=== PATIENT | male | born 1970 | race American Indian/Alaskan Native ===

== ENCOUNTER 2017-11-27 20:16 | Inpatient (IN) | payer OTHER ==
[2017-11-27 20:16] VITALS: BMI 27.7
[2017-11-27] MEDS ORDERED: Albuterol 0.083% Inhal Sol (2.5 mg/3 mL) UD INH STA (20:52)
[2017-11-27] MEDS ORDERED: Albuterol-Ipratrop 3 mg / 0.5 (3 ml) UD IH STA (20:52)
[2017-11-27 22:17] LABS: INR 1.07 (0.93-1.08); PROTHROMBIN TIME 12.2 SECONDS (9.4-12.5)
[2017-11-27 22:19] LABS: ALBUMIN 4.1 g/dL (3.0-4.8); ALT/SGPT 38 U/L (7-56); AST/SGOT 30 U/L (17-59); BLOOD UREA NITROGEN 17 mg/dL (7-21); CALCIUM 9.1 mg/dL (8.4-10.5); GFR AFRICAN-AMERICAN > 60; GFR NON-AFRICAN AMERICAN 54
[2017-11-27 22:28] LABS: BASO # 0.02 K/mm3 (0.0-2.0); BASO % 0.3 % (0.0-3.0); EOS # 0.2 (0.0-0.7); EOS % 2.5 % (1.5-5.0); GRAN # 4.42 (1.4-6.5); GRAN % 65.5 % (50.0-68.0); LYMPH # 1.6 (1.2-3.4); LYMPH % 24.3 % (22.0-35.0); MEAN CELL VOLUME 94.6 fl (80.0-105.0); MEAN CORPUSCULAR HEMOGLOBIN 31.8 pg (25.0-35.0); MEAN CORPUSCULAR HGB CONC 33.6 g/dl (31.0-37.0); MEAN PLATELET VOLUME 10.7 fl (7.0-11.0); MONO # 0.5 (0.1-0.6); MONO % 7.4 % (1.0-6.0); RBC 5.03 10^6/uL (3.5-6.1); RED CELL DISTRIBUTION WIDTH 13.5 % (11.5-14.5); WHITE BLOOD COUNT 6.8 10^3/ul (4.5-11.0)
[2017-11-27 22:30] LABS: TROPONIN I < 0.01 ng/mL
[2017-11-28] MEDS ORDERED: levoFLOXacin 750 mg in D5W 750 MG/150 ML BAG IVPB STA (00:03)
--- NOTE | 2017-11-28 00:04 | ED PDOC ---
Arrival/HPI - General Chief Complaint: Flu-like Symptoms Time Seen by Provider: 11/27/17 20:39 Historian: Patient - History of Present Illness Narrative History of Present Illness (Text): 11/28/17 00:02 A 47 year old male, with one episode of bronchitis in the past, no other past medical history, presents to the emergency department for feeling sick the past 3-4 days, cough and congestion. Patient thinks he has the flu. Patient reports subjective fever but denies any other complaints at this time. Time/Duration: < week Symptom Onset: Sudden Symptom Course: Unchanged Activities at Onset: Rest Context: Home Past Medical History - Provider Review Nursing Documentation Reviewed: Yes - Psychiatric Hx Depression: No Hx Emotional Abuse: No Hx Physical Abuse: No Hx Substance Use: No - Suicidal Assessment Feels Threatened In Home Enviroment: No Family/Social History - Physician Review Nursing Documentation Reviewed: Yes Family/Social History: No Known Family HX Smoking Status: never Hx Alcohol Use: Yes (SOCIAL) Hx Substance Use: No Hx Substance Use Treatment: No Allergies/Home Meds Allergies/Adverse Reactions: Allergies No Known Allergies Allergy (Verified 04/29/12 19:11) Home Medications: Home Meds Medication Instructions Recorded Confirmed No Known Home Med 04/29/12 11/27/17 Review of Systems - Physician Review All systems were reviewed & negative as marked: Yes - Review of Systems Constitutional: Fevers (subjective) ENT: Sinus Congestion Respiratory: Cough Physical Exam Vital Signs Reviewed: Yes Vital Signs Temp Pulse Resp BP Pulse Ox 11/27/17 20:20 99.5 F 122 H 18 154/80 H 95 Temperature: Afebrile Blood Pressure: Hypertensive Pulse: Tachycardic Respiratory Rate: Normal Appearance: Positive for: Well-Appearing, Non-Toxic, Comfortable Pain Distress: None Mental Status: Positive for: Alert and Oriented X 3 - Systems Exam Head: Present: Atraumatic, Normocephalic Pupils: Present: PERRL Extroacular Muscles: Present: EOMI Conjunctiva: Present: Normal Mouth: Present: Moist Mucous Membranes Nose (Internal): Present: Other (nasal congestion) Neck: Present: Normal Range of Motion Respiratory/Chest: Present: Wheezes (all lung trujillo, front and back). No: Respiratory Distress, Accessory Muscle Use Cardiovascular: Present: Regular Rate and Rhythm, Normal S1, S2. No: Murmurs Abdomen: Present: Normal Bowel Sounds. No: Tenderness, Distention, Peritoneal Signs Back: Present: Normal Inspection Upper Extremity: Present: Normal Inspection. No: Cyanosis, Edema Lower Extremity: Present: Normal Inspection. No: Edema Neurological: Present: GCS=15, CN II-XII Intact, Speech Normal Skin: Present: Warm, Dry, Normal Color. No: Rashes Psychiatric: Present: Alert, Oriented x 3, Normal Insight, Normal Concentration Medical Decision Making ED Course and Treatment: 11/28/17 00:00 Impression: A 47 year old male with cough, congestion and wheezing. Plan: -- chest xray -- labs -- Albuterol, Duoneb, Solumedrol, Levaquin -- Reassess and disposition Progress Notes: 11/28/17 00:00 Chest xray: No active disease, as read by me. 11/28/17 00:05 Patient still with wheezing, will give patient another treatment. 11/28/17 00:[address] Alvarado, who agrees and accepts patient to be admitted to her service with Dr. Domínguez on consult. - Lab Interpretations Lab Results: 11/27/17 21:48 11/27/17 21:48 Lab Results 11/27/17 21:48: Sodium 143, Potassium 4.1, Chloride 103, Carbon Dioxide 26, Anion Gap 18, BUN 17, Creatinine 1.4, Est GFR ( Amer) > 60, Est GFR (Non- Af Amer) 54, Random Glucose 138 H, Calcium 9.1, Total Bilirubin 0.4, AST 30, ALT 38, Alkaline Phosphatase 79, Lactate Dehydrogenase 547, Total Creatine Kinase 195, Troponin I < 0.01, Total Protein 8.3, Albumin 4.1, Globulin 4.2, Albumin/Globulin Ratio 1.0 L 11/27/17 21:48: PT 12.2, INR 1.07 11/27/17 21:48: WBC 6.8, RBC 5.03, Hgb 16.0, Hct 47.6, MCV 94.6, MCH 31.8, MCHC 33.6, RDW 13.5, Plt Count 231, MPV 10.7, Gran % 65.5, Lymph % (Auto) 24.3, Sunflower % (Auto) 7.4 H, Eos % (Auto) 2.5, Baso % (Auto) 0.3, Gran # 4.42, Lymph # (Auto ) 1.6, Sunflower # (Auto) 0.5, Eos # (Auto) 0.2, Baso # (Auto) 0.02 11/27/17 20:40: Influenza Typ A,B (EIA) Negative for flu a/b I have reviewed the lab results: Yes - RAD Interpretation Radiology Orders: 11/27/17 20:52 CHEST TWO VIEWS (PA/LAT) [RAD] Stat - Medication Orders Current Medication Orders: Levofloxacin/Dextrose (Levaquin 750mg) 750 mg in 150 mls @ 100 mls/hr IVPB STAT STA PRN Reason: Protocol Stop: 11/28/17 01:32 Magnesium Sulfate 2 gm/ Sodium (Chloride) 104 mls @ 102 mls/hr IVPB ONCE ONE Stop: 11/28/17 01:11 Discontinued Medications Albuterol Sulfate (Albuterol 0.083% Inhal Bella (2.5 Mg/3 Ml) Ud) 2.5 mg INH STAT STA Stop: 11/27/17 20:53 Last Admin: 11/27/17 21:55 Dose: 2.5 mg Albuterol/Ipratropium (Duoneb 3 Mg/0.5 Mg (3 Ml) Ud) 3 ml IH STAT STA Stop: 11/27/17 20:53 Last Admin: 11/27/17 21:36 Dose: 3 ml Albuterol/Ipratropium (Duoneb 3 Mg/0.5 Mg (3 Ml) Ud) 3 ml IH STAT STA Stop: 11/28/17 00:11 Methylprednisolone (Solu-Medrol) 125 mg IVP STAT STA Stop: 11/27/17 20:53 Last Admin: 11/27/17 21:36 Dose: 125 mg IVP Administration Document 11/27/17 21:36 MARILU (Rec: 11/27/17 22:56 MARILU [id number]) Charges for Administration # of IVP Administrations 1 - PA / SHOCHET / Resident Statement MD/DO has reviewed & agrees with the documentation as recorded. - Scribe Statement The provider has reviewed the documentation as recorded by the Scribe Narinder Dailey Provider Scribe Attestation: All medical record entries made by the Scribe were at my direction and personally dictated by me. I have reviewed the chart and agree that the record accurately reflects my personal performance of the history, physical exam, medical decision making, and the department course for this patient. I have also personally directed, reviewed, and agree with the discharge instructions and disposition. Disposition/Present on Arrival - Present on Arrival Any Indicators Present on Arrival: No History of DVT/PE: No History of Uncontrolled Diabetes: No Urinary Catheter: No History of Decub. Ulcer: No History Surgical Site Infection Following: None - Disposition Have Diagnosis and Disposition been Completed?: Yes Diagnosis: Bronchospasm with bronchitis, acute Disposition Time: 00:09 Patient Plan: Admission Patient Problems: Current Active Problems Problem Status Onset Bronchospasm with bronchitis, acute Acute Condition: GOOD
[2017-11-28] MEDS ORDERED: Magnesium Sulfate 2 GM in Sodium Chloride 0.9% 100 ML IVPB ONE (00:10)
[2017-11-28] MEDS ORDERED: Albuterol-Ipratrop 3 mg / 0.5 (3 ml) UD IH STA (00:10)
[2017-11-28] MEDS ORDERED: Albuterol-Ipratrop 3 mg / 0.5 (3 ml) UD IH PRN (08:16)
[2017-11-28] MEDS: Pantoprazole 40 mg EC Tab PO SCH (08:44)
--- NOTE | 2017-11-28 10:13 | RAD ---
HISTORY: COUGH, CONGESTION COMPARISON: No prior. TECHNIQUE: Chest PA and lateral FINDINGS: LUNGS: No active pulmonary disease. PLEURA: No significant pleural effusion identified. No pneumothorax apparent. CARDIOVASCULAR: Normal. OSSEOUS STRUCTURES: No significant abnormalities. VISUALIZED UPPER ABDOMEN: Normal. OTHER FINDINGS: None. IMPRESSION: No active disease.
[2017-11-28] MEDS: cefTRIAXone 1 gm 1 GM/100 ML BAG IVPB SCH (11:00)
[2017-11-28] MEDS: MethylPREDNISolone 40 mg Vial IVP SCH ×3 (12:47→22:57)
[2017-11-28 13:24] LABS: URINE BILIRUBIN NEGATIVE (NEGATIVE); URINE BLOOD LARGE (NEGATIVE); URINE GLUCOSE (UA) >=1000 mg/dL (NEGATIVE); URINE LEUKOCYTE ESTERASE NEGATIVE Leu/uL (NEGATIVE); URINE NITRATE NEGATIVE (NEGATIVE); URINE PROTEIN 30 mg/dL (<30 mg/dL); URINE UROBILINOGEN 0.2 E.U./dL (<1 E.U./dL)
[2017-11-28 13:25] LABS: URINE APPEARANCE SL CLOUDY (CLEAR); URINE COLOR YELLOW (YELLOW)
[2017-11-28 13:35] LABS: CREATININE,RANDOM URINE 86 mg/dL
[2017-11-28 13:42] LABS: URINE BACTERIA MOD (NEG); URINE RBC TNTC /hpf (0-2)
[2017-11-28 17:19] LABS: BLOOD UREA NITROGEN 16 mg/dL (7-21); CALCIUM 9.6 mg/dL (8.4-10.5); GFR AFRICAN-AMERICAN > 60; GFR NON-AFRICAN AMERICAN 54
[2017-11-28] MEDS: Budesonide 0.25 mg/2 ml Inhal Susp UD IH SCH (20:03)
[2017-11-28] MEDS: Arformoterol 15 mcg/2 ml Inh Sol IH SCH (20:04)
--- NOTE | 2017-11-28 21:58 | CP.PCM.CON ---
History of Present Illness - History of Present Illness History of Present Illness: 47 yo M w/ no reported pmh, doesn't follow with any physician, presented with worsening cough and chest congestion; admitted for acute bronchitis; nephrology being consulted for uncontrolled htn; Patient reports having flu-like symptoms late last week with body aches and subjective fever that resolved; subsequently, patient developed the above symptoms which have improved since receiving steroids and antibiotics while here ; Patient otherwise denies chest pain, palpitations or leg swelling; urinates 3-4 times per night but says he drinks a lot of water; denies any dark colored urine recently or in the past; Review of Systems - Constitutional Constitutional: Fever - EENT Eyes: absent: Change in Vision Nose/Mouth/Throat: absent: Sore Throat - Cardiovascular Cardiovascular: absent: Chest Pain, Dyspnea on Exertion, Leg Edema - Respiratory Respiratory: Cough - Gastrointestinal Gastrointestinal: absent: Diarrhea, Nausea, Vomiting - Genitourinary Genitourinary: absent: Dysuria - Musculoskeletal Musculoskeletal: absent: Arthralgias, Back Pain - Integumentary Integumentary: absent: Rash - Neurological Neurological: absent: Dizziness, Headaches - Psychiatric Psychiatric: absent: Anxiety, Depression - Endocrine Endocrine: Polyuria - Hematologic/Lymphatic Hematologic: absent: Easy Bruising Past Patient History - Past Medical History & Family History Past Medical History?: No Pertinent Family History: Mother with DM and kidney problems (not on dialysis); - Past Social History Smoking Status: Never Smoked - CARDIAC Hx Cardiac Disorders: No - PULMONARY Hx Respiratory Disorders: Yes Hx Bronchitis: Yes - NEUROLOGICAL Hx Neurological Disorder: No - HEENT Hx HEENT Problems: No - RENAL Hx Chronic Kidney Disease: No - HEMATOLOGICAL/ONCOLOGICAL Hx Blood Disorders: No - INTEGUMENTARY Hx Dermatological Problems: No - MUSCULOSKELETAL/RHEUMATOLOGICAL Hx Musculoskeletal Disorders: No Hx Falls: No - GASTROINTESTINAL Hx Gastrointestinal Disorders: No - GENITOURINARY/GYNECOLOGICAL Hx Genitourinary Disorders: No - PSYCHIATRIC Hx Psychophysiologic Disorder: No Hx Substance Use: No - SURGICAL HISTORY Hx Surgeries: No Meds Allergies/Adverse Reactions: Allergies Allergy/AdvReac Type Severity Reaction Status Date / Time No Known Allergies Allergy Verified 04/29/12 19:11 - Medications Medications: Current Medications Albuterol/Ipratropium (Duoneb 3 Mg/0.5 Mg (3 Ml) Ud) 3 ml IH [id number] PRN PRN Reason: Shortness of Breath Arformoterol Tartrate (Brovana) 15 mcg IH [id number] [facility] Last Admin: 11/28/17 20:04 Dose: 15 mcg Budesonide (Pulmicort Respules) 0.25 mg IH [id number] [facility] Last Admin: 11/28/17 20:03 Dose: 0.25 mg Ceftriaxone Sodium (Rocephin 1 Gram Ivpb) 1 gm in 100 mls @ 100 mls/hr IVPB DAILY [facility] PRN Reason: Protocol Stop: 12/02/17 10:59 Last Admin: 11/28/17 11:00 Dose: 100 mls/hr Lisinopril (Zestril) 20 mg PO DAILY [facility] Last Admin: 11/28/17 11:01 Dose: 20 mg Methylprednisolone (Solu-Medrol) 40 mg IVP Q12 [facility] Pantoprazole Sodium (Protonix Ec Tab) 40 mg PO 0600 [facility] Last Admin: 11/28/17 08:44 Dose: 40 mg Physical Exam - Constitutional Appears: Well, No Acute Distress - Head Exam Head Exam: NORMAL INSPECTION - Eye Exam Eye Exam: absent: Scleral icterus - ENT Exam ENT Exam: Mucous Membranes Moist - Neck Exam Neck exam: Positive for: Normal Inspection. Negative for: Lymphadenopathy - Respiratory Exam Respiratory Exam: Clear to Auscultation Bilateral. absent: Respiratory Distress - Cardiovascular Exam Cardiovascular Exam: RRR, +S1, +S2 - GI/Abdominal Exam GI & Abdominal Exam: Soft. absent: Distended, Tenderness - Exam Exam: absent: Bladder Distension - Extremities Exam Additional comments: no leg edema; - Neurological Exam Neurological exam: Alert, Oriented x3 - Psychiatric Exam Psychiatric exam: Normal Affect, Normal Mood - Skin Skin Exam: Normal Color, Warm Results - Vital Signs Recent Vital Signs: Last Vital Signs Temp 98 F 11/28/17 16:00 Pulse 97 H 11/28/17 16:00 Resp 20 11/28/17 16:00 BP 146/90 11/28/17 16:00 Pulse Ox 98 11/28/17 16:00 - Labs Result Diagrams: 11/29/17 05:30 11/29/17 05:30 Labs: Laboratory Results - last 24 hr 11/28/17 11/28/17 11/28/17 07:25 13:00 13:00 Sodium Potassium Chloride Carbon Dioxide Anion Gap BUN Creatinine Est GFR ( Amer) Est GFR (Non-Af Amer) POC Glucose (mg/dL) 166 H Random Glucose Hemoglobin A1c Calcium Urine Color Yellow Urine Appearance Sl cloudy Urine pH 6.0 Ur Specific [place] 1.015 Urine Protein 30 H Urine Glucose (UA) >=1000 Urine Ketones Negative Urine Blood Large H Urine Nitrate Negative Urine Bilirubin Negative Urine Urobilinogen 0.2 Ur Leukocyte Esterase Negative Urine RBC Tntc Urine WBC 5 - 10 Ur Epithelial Cells 4 - 5 Urine Bacteria Mod Ur Random Creatinine 86 Ur Random Sodium 48 Urine Microalbumin 11/28/17 11/28/17 11/28/17 13:00 16:30 16:30 Sodium 141 Potassium 5.1 H Chloride 105 Carbon Dioxide 23 Anion Gap 19 BUN 16 Creatinine 1.4 Est GFR ( Amer) > 60 Est GFR (Non-Af Amer) 54 POC Glucose (mg/dL) Random Glucose 177 H Hemoglobin A1c 6.7 H Calcium 9.6 Urine Color Urine Appearance Urine pH Ur Specific [place] Urine Protein Urine Glucose (UA) Urine Ketones Urine Blood Urine Nitrate Urine Bilirubin Urine Urobilinogen Ur Leukocyte Esterase Urine RBC Urine WBC Ur Epithelial Cells Urine Bacteria Ur Random Creatinine Ur Random Sodium Urine Microalbumin 304.1 H - Imaging and Cardiology Chest x-ray Status: Image reviewed by me Additional comment: CXR clear Assessment & Plan (1) HTN (hypertension) Assessment and Plan: BP uncontrolled on presentation, never treated previously; no sign of volume excess on exam; likely essential htn but will look for secondary cause as well; has increased risk factors for cardiovascular disease including obesity and early CKD; will need to establish close f/u with PMD as outpatient; -BP improved on lisinopril 20 mg daily started by PMD; continue the same; checking valdo/renin level; Status: Acute (2) Polyuria Assessment and Plan: Glycosuria on UA; checking HgbA1C to screen for DM; Status: Acute (3) CKD (chronic kidney disease) Assessment and Plan: Mildly elevated serum creatinine with overt albuminuria; also with blood on UA; will pursue serologic workup for glomerular disease; checking C3/C4 for now; will check direct urine micro; Status: Suspected (4) Proteinuria Assessment and Plan: 350 mg/g albuminuria by Ur prot/creat ratio; 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
--- NOTE | 2017-11-29 05:33 | CON ---
DATE: 11/28/2017 REFERRING PHYSICIAN: Nora Alvarado MD REASON FOR CONSULTATION: Cough, shortness of breath. HISTORY OF PRESENT ILLNESS: This is a 47-year-old gentleman without any significant past medical history, who has been having flu-like symptoms for a couple of days, took [id number] medication with some relief, comes in with a chest pain, shortness of breath. No nausea, no vomiting. No diarrhea. Admit to have snoring at nighttime, daytime sleepy and tired. PAST MEDICAL HISTORY: No significant cardiopulmonary disease reported. ALLERGIES: NONE KNOWN. FAMILY HISTORY: No significant cardiopulmonary disease is reported. SOCIAL HISTORY: Nonsmoker, nondrinker. MEDICATIONS: He was put on Brovana inhaled twice a day, DuoNeb q.6h. p.r.n., Protonix 40 mg daily, Pulmicort inhaled twice a day, Rocephin 1 g daily, Solu-Medrol 40 mg q.6h., Zestril 20 mg daily. REVIEW OF SYSTEMS: No headache. Has some rhinitis, cough, shortness of breath, seems like pleuritic pain. No nausea, no vomiting, no diarrhea. No leg pain or leg swelling. PHYSICAL EXAMINATION: VITAL SIGNS: Temperature is 98, heart rate is 100, respiratory rate is 20, blood pressure in the morning was 178/112, presently 146/90. HEENT: Moist mucous membrane. Crowded airway. Mallampati score is 4. NECK: Supple. No JVD. LUNGS: Has a prolonged expiratory phase with rhonchi. HEART: S1, S2. ABDOMEN: Soft, nontender, no organomegaly. EXTREMITIES: No edema. NEUROLOGIC: Awake, alert, follows simple commands. LABORATORY DATA: Shows hemoglobin 16.0, hematocrit 47.6, WBC 6.8, platelet count is 231. INR 1.07. Sodium 141, potassium 4.1, chloride 105, bicarbonate 23, BUN 16, creatinine 1.4, glucose 177, hemoglobin A1c 6.7, calcium is 9.6. Influenza A and B have been negative. Chest x-ray done shows no infiltrate or effusion reported. IMPRESSION AND PLAN: Probably status post viral infection with acute bronchitis with bronchospasm. I agree with the present treatment. We will place on Rocephin, Solu-Medrol, inhaled bronchodilator, gastric and DVT prophylaxes. May also have sleep apnea syndrome. Sleep apnea precaution, avoid sedation, outpatient attended sleep study. We will also recommend PFT as outpatient upon discharge. Decrease Solu-Medrol to 40 q.12h. Thank you and we will follow with you. Dejah Domínguez MD
--- NOTE | 2017-11-29 06:10 | HP ---
CHIEF COMPLAINT: Flu-like symptoms. HISTORY OF PRESENT ILLNESS: Mr. Keven Stern is a 47-year-old male with nonsignificant past medical history, has one episode of bronchitis in the past. No other past medical history. He came to the emergency department, complaining of feeling sick for the past 3 to 4 days, coughing, congestion. The patient stated he has flu. The patient reports subjective fever, but denies any other complaints. No hematuria or hematochezia. No dysuria, no dyspnea, no dyspepsia. All started less than 1 week, unchanged.. PAST MEDICAL HISTORY: History of bronchitis once; otherwise, nonsignificant. FAMILY HISTORY: Father and mother noncontributory. HABITS: Alcohol, socially. Substance abuse, no. Smoking, never. ALLERGIES: THE PATIENT IS NOT ALLERGIC TO ANY MEDICATIONS. HOME MEDICATIONS: Denied. REVIEW OF SYSTEMS: The patient is seen and examined at the bedside, looking comfortable except that congested, coughing, sometimes feeling shortness of breath at the end of the cough, fever, subjective sinus congestion. PHYSICAL EXAMINATION: VITAL SIGNS: Temperature 99.5, pulse 122, respiratory rate 18, blood pressure 154/80, pulse oximetry 95. HEENT: Head is normocephalic and atraumatic. Eyes, PERRLA. Extraocular movements are intact. Conjunctivae clear. Nose patent. Mucous membrane moist. NECK: Supple. No carotid bruit, JVD, or thyromegaly. CHEST: Bilaterally symmetrical. LUNGS: Wheezing in all the lung field, front and back. HEART: S1 and S2 positive. Regular rate and rhythm. ABDOMEN: Soft. Bowel sounds present. No organomegaly. EXTREMITIES: No edema. No cyanosis. NEUROLOGIC: Patient is awake and alert. Moving all four extremities. No focal deficits. LABORATORY DATA: White blood cells 6.3, hemoglobin 16.0, hematocrit 47.6, platelets 231. Sodium 143, potassium 4.1, BUN 70, creatinine 1.4, glucose 138. ASSESSMENT AND PLAN: Mr. Keven Stern is a 47-year-old male with hyperglycemia, came with flu-like symptoms, has bronchospasm with bronchitis and hypertension. Chest x-ray done, showed no active disease. The patient was seeing Dr. Myles Ponce for uncontrolled hypertension. He never had high blood pressures in the past. Seen by Dr. Domínguez, started on Brovana, albuterol, Protonix for gastrointestinal prophylaxis, ceftriaxone given, started on Solu-Medrol and Zestril. Gastrointestinal and deep venous thrombosis prophylaxis. Repeat labs. Discussion done with Dr. Myles Ponce. We will follow up. Nora Alvarado MD
[2017-11-29] MEDS: Pantoprazole 40 mg EC Tab PO SCH (06:16)
[2017-11-29 07:13] LABS: ALBUMIN 3.9 g/dL (3.0-4.8); CALCIUM 9.2 mg/dL (8.4-10.5)
[2017-11-29 07:14] LABS: HEMOGLOBIN 15.3 g/dL (14.0-18.0); MEAN CELL VOLUME 94.5 fl (80.0-105.0); MEAN CORPUSCULAR HEMOGLOBIN 32.1 pg (25.0-35.0); MEAN PLATELET VOLUME 10.3 fl (7.0-11.0); RBC 4.76 10^6/uL (3.5-6.1); RED CELL DISTRIBUTION WIDTH 13.9 % (11.5-14.5); WHITE BLOOD COUNT 16.7 10^3/ul (4.5-11.0)
[2017-11-29] MEDS: Arformoterol 15 mcg/2 ml Inh Sol IH SCH ×2 (08:47→20:03)
[2017-11-29] MEDS: Budesonide 0.25 mg/2 ml Inhal Susp UD IH SCH ×2 (08:48→20:04)
[2017-11-29] MEDS: MethylPREDNISolone 40 mg Vial IVP SCH ×3 (09:43→22:15)
[2017-11-29] MEDS: cefTRIAXone 1 gm 1 GM/100 ML BAG IVPB SCH (09:43)
--- NOTE | 2017-11-29 14:36 | US ---
PROCEDURE: Ultrasound of the Kidneys HISTORY: renal insufficiency COMPARISON: None available. TECHNIQUE: Sonogram of the kidneys. FINDINGS: RIGHT KIDNEY: Measures: 10.2 x 4.3 x 6.7 cm. Normal in size, contour and echogenicity. No stone, solid mass lesion or hydronephrosis visualized. No perinephric fluid collection identified. LEFT KIDNEY: Measures: 10.1 x 5.7 x 6.6 cm. Normal in size, contour and echogenicity. No stone, solid mass lesion or hydronephrosis visualized. No perinephric fluid collection identified. OTHER FINDINGS: None. IMPRESSION: Unremarkable renal sonogram.
[2017-11-29 14:44] LABS: COMPLEMENT C4 44.5 mg/dL (14.0-44.0)
--- NOTE | 2017-11-29 19:46 | CP.PCM.PN ---
Subjective - Date & Time of Evaluation Date of Evaluation: 11/29/17 Time of Evaluation: 11:00 - Subjective Subjective: Patient reports breathing/cough improved; tolerating diet; Objective - Vital Signs/Intake and Output Vital Signs (last 24 hours): Temp Pulse Resp BP Pulse Ox 98.3 F 102 H 18 153/93 H 96 11/29/17 06:00 11/29/17 18:11 11/29/17 06:00 11/29/17 18:11 11/29/17 06:00 - Medications Medications: Current Medications Albuterol/Ipratropium (Duoneb 3 Mg/0.5 Mg (3 Ml) Ud) 3 ml IH [id number] PRN PRN Reason: Shortness of Breath Arformoterol Tartrate (Brovana) 15 mcg IH [id number] [facility] Last Admin: 11/29/17 08:47 Dose: 15 mcg Budesonide (Pulmicort Respules) 0.25 mg IH [id number] [facility] Last Admin: 11/29/17 08:48 Dose: 0.25 mg Ceftriaxone Sodium (Rocephin 1 Gram Ivpb) 1 gm in 100 mls @ 100 mls/hr IVPB DAILY [facility] PRN Reason: Protocol Stop: 12/02/17 10:59 Last Admin: 11/29/17 09:43 Dose: 100 mls/hr Lisinopril (Zestril) 20 mg PO DAILY [facility] Last Admin: 11/29/17 09:44 Dose: 20 mg Methylprednisolone (Solu-Medrol) 40 mg IVP Q12 [facility] Last Admin: 11/29/17 09:43 Dose: 40 mg Pantoprazole Sodium (Protonix Ec Tab) 40 mg PO 0600 [facility] Last Admin: 11/29/17 06:16 Dose: 40 mg - Labs Labs: 11/29/17 05:30 11/29/17 05:30 PT 12.2 SECONDS (9.4-12.5) 11/27/17 21:48 INR 1.07 (0.93-1.08) 11/27/17 21:48 - Constitutional Appears: Well - Eye Exam Eye Exam: Normal appearance - ENT Exam ENT Exam: Mucous Membranes Moist - Respiratory Exam Respiratory Exam: Clear to Ausculation Bilateral. absent: Respiratory Distress - Cardiovascular Exam Cardiovascular Exam: RRR, +S1, +S2 - GI/Abdominal Exam GI & Abdominal Exam: Soft. absent: Distended, Tenderness - Extremities Exam Additional comments: no leg edema; - Neurological Exam Neurological Exam: Alert, Awake - Psychiatric Exam Psychiatric exam: Normal Affect, Normal Mood. absent: Agitated - Skin Skin Exam: Warm. 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 as patient has hematuria (which is improved on microscopy today, perhaps due to steroids) with RBC's appearing somewhat dysmorphic; initiating full serologic workup which we can f/u as outpatient; otherwise, mild increase in serum creatinine due to lisinopril is acceptable; Status: Chronic (3) Proteinuria Assessment & Plan: ~700 mg/g on random protein/creat ratio; continue lisinopril 20 mg daily, see above regarding further workup; Status: Acute (4) Hyperglycemia Assessment & Plan: Exacerbated by steroids; patient counseled on his likely diagnosis of DM ( borderline high hgbA1C) and the need for dietary/lifestyle changes for now including weight loss; Status: Acute (5) Polyuria Status: Acute
--- NOTE | 2017-11-30 00:58 | PN ---
DATE: 11/29/2017 REFERRING PHYSICIAN: Nora Alvarado MD SUBJECTIVE: Patient is sitting up in a chair, still has a cough, shortness of breath. No nausea, vomiting, or diarrhea. No leg pain or leg swelling. Admits to have snoring nighttime, daytime sleepy and tired. OBJECTIVE: GENERAL: In no acute distress. VITAL SIGNS: Temperature is 98, heart rate is 102, respiratory rate is 20, blood pressure 153/93, pulse ox 96% room air. HEENT: Moist mucous membranes. Crowded airway. NECK: Supple. No JVD. LUNGS: Has fair airflow with rhonchi. HEART: S1, S2. ABDOMEN: Soft, nontender, no organomegaly. EXTREMITIES: There is no edema. NEUROLOGICAL: Awake, alert, follows simple commands. MEDICATIONS: He is on Brovana inhaled twice a day, DuoNeb q.6h. p.r.n., Protonix 40 mg daily, Pulmicort inhaled twice a day, Rocephin 1 g daily, Solu-Medrol 40 mg q.12h., Zestril 20 mg daily. LABORATORY DATA: Shows hemoglobin 15.3, hematocrit 45.0, WBC 16.7, platelet is 264. Sodium 141, potassium 4.0, chloride 107, bicarbonate 22, BUN 25, creatinine 1.6, glucose 199, hemoglobin A1c 6.7, AST 23, ALT 36, alk phos is 66. Albumin is 3.9. Cholesterol is 202. TSH 0.58. IMPRESSION AND PLAN: Acute bronchitis - rule out asthma, renal insufficiency, may have sleep apnea syndrome. We will continue IV and inhaled bronchodilator. Continue antibiotics. Sleep apnea precaution. Seen by Nephrology. If stable by tomorrow, discharge planning. Outpatient attended sleep study and PFT. Thank you and we will follow with you. Dejah Domínguez MD
--- NOTE | 2017-11-30 05:21 | PN ---
DATE: The patient is a 47-year-old male. SUBJECTIVE: The patient is seen and examined at the bedside, looking comfortable. No nausea, vomiting, or diarrhea. No hematuria or hematochezia. No swelling of the legs. No headache, no chest pain, no palpitations. The patient is having dinner while I was sitting with him. No fever. No chills. MEDICATIONS: DuoNeb, Brovana, Pulmicort, Rocephin, Zestril, Solu-Medrol, and Protonix. PHYSICAL EXAMINATION VITAL SIGNS: Temperature 98.3, pulse 102, respiratory rate 18, blood pressure 153/96, and pulse oximetry 96%. HEENT: Head: Normocephalic, atraumatic. Eyes: PERRLA. Extraocular movements intact. Conjunctivae clear. Nose patent. Mucous membranes are moist. NECK: Supple. No carotid bruit. No JVD or thyromegaly. CHEST: Bilaterally symmetrical. HEART: S1 and S2 positive. LUNGS: Clear to auscultation. ABDOMEN: Soft. Bowel sounds are present. No organomegaly. EXTREMITIES: No edema. No cyanosis. NEUROLOGIC: The patient is awake and alert. Moving all 4 extremities. No focal deficits. LABORATORY DATA: White blood cells 16.7, hemoglobin 15.3, hematocrit 45.0, and platelets 264,000. Sodium 141, potassium 5.0, BUN 25, creatinine 1.6, and glucose 199. ASSESSMENT AND PLAN: Mr. Jarred Baca is a 47-year-old male with leukocytosis, renal insufficiency, hyperglycemia, hypertension - not very well controlled, polyuria, and proteinuria. Dr. Ponce, frame nailer is on the case. Discussion done with the family and the patient. Renal ultrasound was done. Unremarkable renal sonogram. This is a new-onset dm for the patient. Seen by the line tester, Dr. Domínguez. Probably, status post viral infection with acute bronchitis with bronchospasm. The patient is getting Rocephin with Solu-Medrol. Sleep apnea syndrome. Avoid sedation. Needs outpatient sleep study. Dr. Domínguez decreased Solu-Medrol to q.12 hours. Gastric and deep venous thrombosis prophylaxis. Repeat labs. We will follow. Nora Alvarado MD Psychiatric # [id number] [facility]
[2017-11-30] MEDS: Pantoprazole 40 mg EC Tab PO SCH (05:46)
[2017-11-30 05:48] VITALS: BP 148/99
[2017-11-30] MEDS: Arformoterol 15 mcg/2 ml Inh Sol IH SCH (07:42)
[2017-11-30] MEDS: Budesonide 0.25 mg/2 ml Inhal Susp UD IH SCH (07:56)
[2017-11-30] MEDS ORDERED: Budesonide 0.5 mg/2 ml Inhal Susp UD IH SCH (08:00)
[2017-11-30] MEDS ORDERED: Arformoterol 15 mcg/2 ml Inh Sol IH SCH (08:00)
[2017-11-30] MEDS: Insulin Reg-LOW-Coverage SC SCH ×2 (08:04→13:05)
[2017-11-30 08:12] LABS: BASO # 0.01 K/mm3 (0.0-2.0); GRAN # 18.58 (1.4-6.5); GRAN % 90.5 % (50.0-68.0); HEMOGLOBIN 15.4 g/dL (14.0-18.0); LYMPH # 1.5 (1.2-3.4); LYMPH % 7.1 % (22.0-35.0); MEAN CELL VOLUME 94.4 fl (80.0-105.0); MEAN CORPUSCULAR HEMOGLOBIN 31.8 pg (25.0-35.0); MEAN CORPUSCULAR HGB CONC 33.6 g/dl (31.0-37.0); MEAN PLATELET VOLUME 10.3 fl (7.0-11.0); MONO # 0.5 (0.1-0.6); MONO % 2.4 % (1.0-6.0); PLATELET COUNT 347 10^3/uL (120.0-450.0); RBC 4.85 10^6/uL (3.5-6.1); WHITE BLOOD COUNT 20.6 10^3/ul (4.5-11.0)
[2017-11-30 08:15] VITALS: PULSE 79; RESP 19; TEMP 98; O2SAT 97
[2017-11-30 08:28] LABS: ALB/GLOB RATIO 1.1 (1.1-1.8); ALBUMIN 4.2 g/dL (3.0-4.8); ALT/SGPT 32 U/L (7-56); AST/SGOT 27 U/L (17-59); BLOOD UREA NITROGEN 26 mg/dL (7-21); CALCIUM 9.3 mg/dL (8.4-10.5); GFR AFRICAN-AMERICAN > 60; GFR NON-AFRICAN AMERICAN 54
[2017-11-30 09:00] LABS: BAND 4 % (0-2); LYMPHOCYTE 6 % (22.0-35.0); MONOCYTE 2 % (1.0-6.0); NEUTROPHIL 88 % (50.0-70.0); PLATELET ESTIMATE NORMAL (NORMAL)
[2017-11-30] MEDS: cefTRIAXone 1 gm 1 GM/100 ML BAG IVPB SCH (09:12)
[2017-11-30] MEDS: MethylPREDNISolone 40 mg Vial IVP SCH (09:13)
[2017-11-30 12:09] LABS: HEPATITIS B SURFACE AG Negative (NEGATIVE)
[2017-11-30 12:26] LABS: HEPATITIS C ANTIBODY NEGATIVE (NEGATIVE)
--- NOTE | 2017-11-30 13:41 | PN ---
DATE: 11/30/2017 PULMONARY PROGRESS NOTE REFERRING PHYSICIAN: Dr. Alvarado. SUBJECTIVE: The patient is sitting up in bed, night was unremarkable. Still has some cough . Admitting snoring, daytime sleeping. No nausea. No vomiting. No diarrhea. No leg pain or leg swelling. PHYSICAL EXAMINATION: GENERAL: No acute distress. VITAL SIGNS: Temperature is 98, heart rate is 79, respiratory rate is 19, blood pressure 148/99, pulse ox 97% on room air. HEENT: Moist mucous membrane. Crowded airway. Mallampati score is IV. NECK: Supple. No JVD. LUNGS: Has a fair airflow with rhonchi. HEART: S1 and S2. ABDOMEN: Soft and nontender. No organomegaly. EXTREMITIES: There is no edema. NEUROLOGICAL: Awake and alert. Follows simple commands. MEDICATIONS: He is on Brovana inhaled twice a day, DuoNeb q. 6 hours p.r.n., insulin coverage, Lipitor 10 mg daily, Protonix 40 mg daily, Pulmicort inhaled twice a day, Rocephin 1 g IV daily, Solu-Medrol 30 mg q. 12 hours, Zestril 20 mg daily. LABORATORY DATA: Shows hemoglobin 15.4, hematocrit 45.3, WBC 20,000, platelet count is 347. Sodium 142, potassium 4.8, chloride 104, bicarbonate 26, BUN 26, creatinine 1.4, glucose 157. Uric acid 7.9. AST 27, ALT 32, alkaline phosphatase is 71, albumin is 4.2. IMPRESSION AND PLAN: Acute bronchitis, rule out asthma; renal insufficiency, may have sleep apnea syndrome; mild leukocytosis. Case was discussed with the nursing staff. The patient can be discharged home on tapered dose of steroids. May give doxycycline 100 mg twice a day for 5 days and tapered steroid over 5 days. Outpatient, he needs pulmonary function test and also need to attend a sleep study. Follow up renal function as an outpatient. Thank you and we will follow with you. Dejah Domínguez MD
--- NOTE | 2017-11-30 22:10 | CP.PCM.PN ---
Subjective - Date & Time of Evaluation Date of Evaluation: 11/30/17 Time of Evaluation: 11:00 - Subjective Subjective: Patient reports breathing improved; tolerating diet; Objective - Vital Signs/Intake and Output Vital Signs (last 24 hours): Temp Pulse Resp BP Pulse Ox 98 F 79 19 148/99 H 97 11/30/17 08:15 11/30/17 08:15 11/30/17 08:15 11/30/17 08:15 11/30/17 08:15 - Labs Labs: 11/30/17 07:00 11/30/17 07:00 PT 12.2 SECONDS (9.4-12.5) 11/27/17 21:48 INR 1.07 (0.93-1.08) 11/27/17 21:48 - Constitutional Appears: Well, Non-toxic, No Acute Distress - Eye Exam Eye Exam: Normal appearance - ENT Exam ENT Exam: Mucous Membranes Moist - Respiratory Exam Respiratory Exam: Clear to Ausculation Bilateral. absent: Respiratory Distress - Cardiovascular Exam Cardiovascular Exam: RRR, +S1, +S2 - GI/Abdominal Exam GI & Abdominal Exam: Soft. absent: Distended, Tenderness - Extremities Exam Additional comments: no leg edema; - Neurological Exam Neurological Exam: Alert, Awake - Psychiatric Exam Psychiatric exam: Normal Affect, Normal Mood. absent: Agitated - Skin Skin Exam: absent: Cyanosis Assessment and Plan (1) HTN (hypertension) Assessment & Plan: Newly diagnosed; now on lisinopril 20 and amlodipine 5 mg daily, continue same; Status: Acute (2) CKD (chronic kidney disease) Assessment & Plan: CKD IIIA; stable renal function but concerning for underlying glomerular disease with proteinuria and hematuria; serologic workup in progress, will f/u as outpatient; patient advised that he may need renal biopsy at some point; Status: Chronic (3) Proteinuria Assessment & Plan: Will benefit from ALMA inhibitor senior living, continue lisinopril 20 mg daily; Status: Acute (4) Hyperglycemia Assessment & Plan: Patient counseled regarding likelihood of diabetes with A1C 6.7%; counseled on need for weight loss and dietary modifications for now; Status: Acute (5) Polyuria Status: Acute
[2017-12-02 15:38] LABS: ALDO/PRA RATIO 1.1 Ratio (0.9-28.9)
[2017-12-02 22:11] LABS: PROTEINASE-3 <1.0 AI (<1.0)
== END 2017-11-30 16:21 | disposition home or self-care (01) | DRG 203 ==
LOC: ED 20:16 → ERH 11-28 00:06 → 3RNO 11-28 02:00
PROVIDERS: ADMIT Internal Medicine; ATTEND Internal Medicine
DX: J20.9 Acute bronchitis, unspecified (principal); E11.22 Type 2 diabetes mellitus with diabetic chronic kidney disease; N18.3 Chronic kidney disease, stage 3 (moderate); I12.9 Hypertensive chronic kidney disease with stage 1 through stage 4 chronic kidney disease, or unspecified chronic kidney disease; E11.65 Type 2 diabetes mellitus with hyperglycemia; G47.30 Sleep apnea, unspecified; R40.2412 Glasgow coma scale score 13-15, at arrival to emergency department; E66.9 Obesity, unspecified; Z68.33 Body mass index [BMI] 33.0-33.9, adult; Z84.1 Family history of disorders of kidney and ureter; Z83.3 Family history of diabetes mellitus; R35.8 Other polyuria; R80.9 Proteinuria, unspecified